=== PATIENT | female | born 1985 | race Caucasian/White ===

== ENCOUNTER 2016-12-11 21:47 | Emergency (ER) | payer MEDICARE, OTHER ==
[2016-12-11 22:20] LABS: BASOPHILS % 0.4 (0.0-1.5); EOSINOPHILS % 0.7 % (0.0-6.8); MEAN CORPUSCULAR HEMOGLOBIN 28.5 pg (28.0-34.0); MEAN CORPUSCULAR VOLUME 86.6 fl (80.0-100.0); MONOCYTES % 4.5 % (0.0-11.0); NEUTROPHILS # 6.1 # k/uL (1.4-7.7)
[2016-12-11 22:30] LABS: eGFR (African) > 60; eGFR (Non-African) > 60
[2016-12-11] MEDS ORDERED: INSULIN REGULAR, HUMAN 100 UNIT/ML 3ML VIAL SQ ONE (22:46)
--- NOTE | 2016-12-11 22:46 | ED Physician Documentation ---
General Adult - HISTORIAN Historian: patient, other (caregiver, custodial notes) - HPI Stated Complaint: high blood sugar Chief Complaint: General Adult Additional Information: FSG 420. Pt carries dx of DM, but no treatment. Has FSG drawn fasting on Wednesday mornings and at 1900 on . Says she ate five fun size candy bars this evening. - ROS CONST: other (DM, BPD) - PAST HX Past History: other (BPD) Allergies/Adverse Reactions: Allergies Allergy/AdvReac Type Severity Reaction Status Date / Time zolpidem tartrate Allergy Unknown Verified 12/11/16 22:12 [From Ambien] Home Medications: Ambulatory Orders Medication Instructions Recorded Acetaminophen [Tylenol] 325 mg PO Q4 PRN 11/25/13 Divalproex Sodium [Divalproex 500 mg PO BID 11/25/13 Sodium ER] Docusate Sodium [Colace] 250 mg PO BID 11/25/13 LORazepam [Ativan] 0.5 mg PO BID 11/25/13 Loratadine [Claritin] 10 mg PO DAILY 11/25/13 guaiFENesin [Robitussin] 100 mg PO Q4 11/25/13 Asenapine Maleate [Saphris] 10 mg SL BID 12/11/16 Benztropine Mesylate [Cogentin] 0.5 mg PO QID 12/11/16 Lorazepam [Ativan] 2 mg PO QID 12/11/16 - SOCIAL HX Smoking History: non-smoker - FAMILY HX Family History: Yes - VITAL SIGNS Vital Signs: Vital Signs Temp Pulse Resp BP Pulse Ox 98.2 F 111 H 16 145/95 97 12/11/16 21:50 12/11/16 21:50 12/11/16 21:50 12/11/16 21:50 12/11/16 21:50 - REVIEWED ASSESSMENTS Nursing Assessment Reviewed: Yes ED Results Lab/Radiology - Lab Results Lab Results: Lab Results 12/11/16 12/11/16 22:12 22:12 WBC 9.50 K/ul K/ul (4.00-12.00) RBC 4.37 M/ul M/ul (3.90-5.20) Hgb 12.5 g/dL g/dL (12.0-16.0) Hct 37.8 % % (34.5-46.5) MCV 86.6 fl fl (80.0-100.0) MCH 28.5 pg pg (28.0-34.0) MCHC 33.0 g/dL g/dL (30.0-36.0) RDW 12.9 % % (11.3-14.3) Plt Count 228 K/mm3 K/mm3 (130-400) Neut % (Auto) 64.0 % % (39.0-79.0) Lymph % (Auto) 29.1 % % (16.0-50.0) [place] % (Auto) 4.5 % % (0.0-11.0) Eos % (Auto) 0.7 % % (0.0-6.8) Baso % (Auto) 0.4 (0.0-1.5) Neut # (Auto) 6.1 # k/uL # k/uL (1.4-7.7) Lymph # (Auto) 2.8 # k/uL # k/uL (0.6-4.0) [place] # (Auto) 0.4 # k/uL # k/uL (0.0-0.9) Eos # (Auto) 0.1 # k/uL # k/uL (0.0-0.6) Baso # (Auto) 0.0 # k/uL # k/uL (0.0-0.5) Reactive Lymphs % 1.3 % % (0.0-5.0) Reactive Lymphs # 0.1 # k/uL # k/uL (0.0-0.8) Sodium 129 mmol/L L mmol/L (137-145) Potassium 4.1 mmol/L mmol/L (3.5-5.1) Chloride 96 mmol/L L mmol/L (98-107) Carbon Dioxide 24 mmol/L mmol/L (22-30) BUN 11 mg/dL mg/dL (7-17) Creatinine 0.70 mg/dL mg/dL (0.52-1.04) Estimated Creat Clear 218 Est GFR ( Amer) > 60 (60 - ) Est GFR (Non-Af Amer) > 60 (60 - ) Glucose 431 mg/dL H mg/dL (74-106) Calcium 9.1 mg/dL mg/dL (8.4-10.2) Total Bilirubin 0.1 mg/dL L mg/dL (0.2-1.3) AST 10 U/L L U/L (15-46) ALT 20 U/L U/L (13-69) Alkaline Phosphatase 71 U/L U/L (38-126) Total Protein 6.8 g/dL g/dL (6.3-8.2) Albumin 3.5 g/dL g/dL (3.5-5.0) - Orders Orders: ED Orders Category Date Time Status CBC/PLATELET/DIFF Routine Lab 12/11/16 22:12 Completed CMP Routine Lab 12/11/16 22:12 Completed GLYCOHEMOGLOBIN A1C with eAG Routine Lab 12/11/16 22:12 Received General Adult Physical Exam - PHYSICAL EXAM GENERAL APPEARANCE: no distress EENT: eye inspection normal, ENT inspection normal NECK: normal inspection, supple RESPIRATORY: no resp distress, breath sounds normal CVS: reg rate & rhythm, heart sounds normal, no murmur ABDOMEN: soft, normal bowel sounds SKIN: warm/dry, normal color EXTREMITIES: no evidence of injury NEURO: CN's nml as tested, motor nml, sensation nml Discharge Clincal Impression: Hyperglycemia Referrals: Primary Doctor,No [Primary Care Provider] - 2 Days Additional Instructions: General Adult - HISTORIAN Historian: patient, other (caregiver, custodial notes) - HPI Stated Complaint: high blood sugar Chief Complaint: General Adult Additional Information: FSG 420. Pt carries dx of DM, but no treatment. Has FSG drawn fasting on Wednesday mornings and at 1900 on . Says she ate five fun size candy bars this evening. - PAST HX Allergies/Adverse Reactions: Allergies Allergy/AdvReac Type Severity Reaction Status Date / Time zolpidem tartrate Allergy Unknown Verified 12/11/16 22:12 [From Jez] Home Medications: Ambulatory Orders Medication Instructions Recorded Acetaminophen [Tylenol] 325 mg PO Q4 PRN 11/25/13 Divalproex Sodium [Divalproex 500 mg PO BID 11/25/13 Sodium ER] Docusate Sodium [Colace] 250 mg PO BID 11/25/13 LORazepam [Ativan] 0.5 mg PO BID 11/25/13 Loratadine [Claritin] 10 mg PO DAILY 11/25/13 guaiFENesin [Robitussin] 100 mg PO Q4 10/11/14 Asenapine Maleate [Saphris] 10 mg SL BID 12/11/16 Benztropine Mesylate [Cogentin] 0.5 mg PO QID 12/11/16 Lorazepam [Ativan] 2 mg PO QID 12/11/16 - VITAL SIGNS Vital Signs: Vital Signs Temp Pulse Resp BP Pulse Ox 98.2 F 111 H 16 145/95 97 12/11/16 21:50 12/11/16 21:50 12/11/16 21:50 12/11/16 21:50 12/11/16 21:50 ED Results Lab/Radiology - Lab Results Lab Results: Lab Results 12/11/16 12/11/16 22:12 22:12 WBC 9.50 K/ul K/ul (4.00-12.00) RBC 4.37 M/ul M/ul (3.90-5.20) Hgb 12.5 g/dL g/dL (12.0-16.0) Hct 37.8 % % (34.5-46.5) MCV 86.6 fl fl (80.0-100.0) MCH 28.5 pg pg (28.0-34.0) MCHC 33.0 g/dL g/dL (30.0-36.0) RDW 12.9 % % (11.3-14.3) Plt Count 228 K/mm3 K/mm3 (130-400) Neut % (Auto) 64.0 % % (39.0-79.0) Lymph % (Auto) 29.1 % % (16.0-50.0) [place] % (Auto) 4.5 % % (0.0-11.0) Eos % (Auto) 0.7 % % (0.0-6.8) Baso % (Auto) 0.4 (0.0-1.5) Neut # (Auto) 6.1 # k/uL # k/uL (1.4-7.7) Lymph # (Auto) 2.8 # k/uL # k/uL (0.6-4.0) [place] # (Auto) 0.4 # k/uL # k/uL (0.0-0.9) Eos # (Auto) 0.1 # k/uL # k/uL (0.0-0.6) Baso # (Auto) 0.0 # k/uL # k/uL (0.0-0.5) Reactive Lymphs % 1.3 % % (0.0-5.0) Reactive Lymphs # 0.1 # k/uL # k/uL (0.0-0.8) Sodium 129 mmol/L L mmol/L (137-145) Potassium 4.1 mmol/L mmol/L (3.5-5.1) Chloride 96 mmol/L L mmol/L (98-107) Carbon Dioxide 24 mmol/L mmol/L (22-30) BUN 11 mg/dL mg/dL (7-17) Creatinine 0.70 mg/dL mg/dL (0.52-1.04) Estimated Creat Clear 218 Est GFR ( Amer) > 60 (60 - ) Est GFR (Non-Af Amer) > 60 (60 - ) Glucose 431 mg/dL H mg/dL (74-106) Calcium 9.1 mg/dL mg/dL (8.4-10.2) Total Bilirubin 0.1 mg/dL L mg/dL (0.2-1.3) AST 10 U/L L U/L (15-46) ALT 20 U/L U/L (13-69) Alkaline Phosphatase 71 U/L U/L (38-126) Total Protein 6.8 g/dL g/dL (6.3-8.2) Albumin 3.5 g/dL g/dL (3.5-5.0) - Orders Orders: ED Orders Category Date Time Status CBC/PLATELET/DIFF Routine Lab 12/11/16 22:12 Completed CMP Routine Lab 12/11/16 22:12 Completed GLYCOHEMOGLOBIN A1C with eAG Routine Lab 12/11/16 22:12 Received General Adult Physical Exam - PHYSICAL EXAM GENERAL APPEARANCE: no distress EENT: eye inspection normal, ENT inspection normal NECK: normal inspection, supple RESPIRATORY: no resp distress, breath sounds normal CVS: reg rate & rhythm, heart sounds normal, no murmur ABDOMEN: soft, normal bowel sounds SKIN: warm/dry, normal color EXTREMITIES: no evidence of injury NEURO: CN's nml as tested, motor nml, sensation nml Discharge Clincal Impression: Hyperglycemia Referrals: Primary Doctor,No [Primary Care Provider] - 2 Days Additional Instructions: Obtain the results of your Hgb A1C and make sure DrJake Obtain the results of your Hgb A1C and make sure Dr. Olivas gets them. Follow the sliding scale insulin protocol Condition: Fair Disposition: 01 HOME, SELF-CARE Decision to Admit: NO Decision Time: 23:30
[2016-12-11] MEDS ORDERED: INSULIN REGULAR, HUMAN 100 UNIT/ML 3ML VIAL ONE (22:49)
[2016-12-12 00:04] VITALS: BP 157/53
== END 2016-12-11 23:55 | disposition home or self-care (01) ==
LOC: ED 21:47
DX: R73.9 Hyperglycemia, unspecified (principal)
CPT/HCPCS: 80053; 83036; 85025; J1815; 96372; 99283

== ENCOUNTER 2017-06-10 13:40 | Emergency (ER) | payer MEDICARE, OTHER ==
--- NOTE | 2017-06-10 14:03 | ED Physician Documentation ---
Psychological Disorders - HISTORIAN Historian: patient, other (caregiver) - HPI Stated Complaint: hearing voices Chief Complaint: Psychological Disorder Additional Information: Says she has been hearing voices for a week and they are telling her to hurt herself. - ROS CONST: none - PAST HX Psychiatric problems: psychiatric problems Allergies/Adverse Reactions: Allergies Allergy/AdvReac Type Severity Reaction Status Date / Time zolpidem tartrate Allergy Unknown Verified 06/10/17 14:47 [From Ambien] Home Medications: Ambulatory Orders Medication Instructions Recorded Acetaminophen [Tylenol] 325 mg PO Q4 PRN 11/25/13 Divalproex Sodium [Divalproex 500 mg PO BID 11/25/13 Sodium ER] Docusate Sodium [Colace] 250 mg PO BID 11/25/13 LORazepam [Ativan] 0.5 mg PO BID 11/25/13 Loratadine [Claritin] 10 mg PO DAILY 11/25/13 Asenapine Maleate [Saphris] 10 mg SL BID 12/11/16 Benztropine Mesylate [Cogentin] 0.5 mg PO QID 12/11/16 Lorazepam [Ativan] 2 mg PO QID 12/11/16 Divalproex Sodium [Depakote] 1 tab PO BID 06/10/17 Glyburide/Metformin HCl 2 tab PO BID 06/10/17 [Glyburide-Metformin 5-500 mg] Pantoprazole Sodium [Protonix] 40 mg PO DAILY 06/10/17 risperiDONE [Risperdal] 1 tab PO TID 06/10/17 - Social HX Smoking History: non-smoker - Family HX Family HX: other - VITAL SIGNS Vital Signs: Vital Signs Temp Pulse Resp BP Pulse Ox 96.7 F L 86 17 132/76 95 06/10/17 13:45 06/10/17 13:45 06/10/17 13:45 06/10/17 13:45 06/10/17 13:45 - REVIEWED ASSESSMENTS Nursing Assessment Reviewed: Yes Vitals Reviewed: Yes Progress - Progress Progress: 1720, accepted for transfer to [facility] per Dr. Monet Song ED Results Lab/Radiology - Lab Results Lab Results: Lab Results 06/10/17 06/10/17 06/10/17 14:30 14:30 14:30 WBC 9.00 K/ul K/ul (4.00-12.00) RBC 4.46 M/ul M/ul (3.90-5.20) Hgb 12.5 g/dL g/dL (12.0-16.0) Hct 40.0 % % (34.5-46.5) MCV 89.6 fl fl (80.0-100.0) MCH 27.9 pg L pg (28.0-34.0) MCHC 31.2 g/dL g/dL (30.0-36.0) RDW 13.1 % % (11.3-14.3) Plt Count 287 K/mm3 K/mm3 (130-400) Neut % (Auto) 65.6 % % (39.0-79.0) Lymph % (Auto) 28.4 % % (16.0-50.0) [place] % (Auto) 3.5 % % (0.0-11.0) Eos % (Auto) 0.8 % % (0.0-6.8) Baso % (Auto) 0.4 (0.0-1.5) Neut # (Auto) 5.9 # k/uL # k/uL (1.4-7.7) Lymph # (Auto) 2.6 # k/uL # k/uL (0.6-4.0) [place] # (Auto) 0.3 # k/uL # k/uL (0.0-0.9) Eos # (Auto) 0.1 # k/uL # k/uL (0.0-0.6) Baso # (Auto) 0.0 # k/uL # k/uL (0.0-0.5) Reactive Lymphs % 1.3 % % (0.0-5.0) Reactive Lymphs # 0.1 # k/uL # k/uL (0.0-0.8) Sodium 142 mmol/L mmol/L (136-145) Potassium 4.4 mmol/L mmol/L (3.5-5.1) Chloride 100 mmol/L mmol/L (98-107) Carbon Dioxide 26 mmol/L mmol/L (22-30) BUN 12 mg/dL mg/dL (7-17) Creatinine 0.60 mg/dL mg/dL (0.52-1.04) Estimated Creat Clear 294 Est GFR ( Amer) > 60 (60 - ) Est GFR (Non-Af Amer) > 60 (60 - ) Glucose 119 mg/dL H mg/dL (74-106) Calcium 9.6 mg/dL mg/dL (8.4-10.2) Total Bilirubin 0.5 mg/dL mg/dL (0.2-1.3) AST 17 U/L U/L (15-46) ALT 28 U/L U/L (13-69) Alkaline Phosphatase 74 U/L U/L (38-126) Total Protein 7.0 g/dL g/dL (6.3-8.2) Albumin 4.0 g/dL g/dL (3.5-5.0) Urine Color Urine Appearance Urine pH Ur Specific [place] Urine Protein Urine Ketones Urine Occult Blood Urine Nitrite Urine Bilirubin Urine Urobilinogen Ur Leukocyte Esterase Urine Glucose Urine HCG, Qual Opiates Screen Oxycodone Screen Methadone Screen Acetaminophen < 10.0 ug/mL L ug/mL (10-30) Ur Barbiturates Screen Tricyclic Antidepress Phencyclidine Screen Amphetamines Screen U Methamphetamines Scrn MDMA Benzodiazepines Screen Urine Cocaine Screen U Cannabinoids Screen Ethyl Alcohol < 10.0 mg/dL mg/dL (0.0-10.0) 06/10/17 06/10/17 06/10/17 14:28 14:28 14:28 WBC RBC Hgb Hct MCV MCH MCHC RDW Plt Count Neut % (Auto) Lymph % (Auto) [place] % (Auto) Eos % (Auto) Baso % (Auto) Neut # (Auto) Lymph # (Auto) [place] # (Auto) Eos # (Auto) Baso # (Auto) Reactive Lymphs % Reactive Lymphs # Sodium Potassium Chloride Carbon Dioxide BUN Creatinine Estimated Creat Clear Est GFR ( Amer) Est GFR (Non-Af Amer) Glucose Calcium Total Bilirubin AST ALT Alkaline Phosphatase Total Protein Albumin Urine Color Yellow (YELLOW) Urine Appearance Clear (CLEAR) Urine pH 6.0 (5.0 - 8.0) Ur Specific [place] 1.010 (1.010-1.030) Urine Protein Negative mg/dL mg/dL (NEGATIVE) Urine Ketones Negative mg/dL mg/dL (NEGATIVE) Urine Occult Blood Negative (NEGATIVE) Urine Nitrite Negative (NEGATIVE) Urine Bilirubin Negative (NEGATIVE) Urine Urobilinogen 0.2 Eu Eu (0.2-1.0) Ur Leukocyte Esterase Negative (NEGATIVE) Urine Glucose Negative mg/dL mg/dL (NEGATIVE) Urine HCG, Qual Negative (NEGATIVE) Opiates Screen Negative ng/mL ng/mL (<300) Oxycodone Screen Negative ng/mL ng/mL (<100) Methadone Screen Negative ng/mL ng/mL (<200) Acetaminophen Ur Barbiturates Screen Negative ng.mL ng.mL (<200) Tricyclic Antidepress Negative ng/mL ng/mL (<300) Phencyclidine Screen Negative ng/mL ng/mL (< 25) Amphetamines Screen Negative ng/mL ng/mL (<500) U Methamphetamines Scrn Negative ng/mL ng/mL (<500) MDMA Negative ng/mL ng/mL (<500) Benzodiazepines Screen Non negative ng/mL H ng/mL (<150) Urine Cocaine Screen Negative ng/mL ng/mL (<150) U Cannabinoids Screen Negative ng/mL ng/mL (< 50) Ethyl Alcohol - Orders Orders: ED Orders Category Date Time Status Suicide Precautions 1T Care 06/10/17 13:58 Active ACETAMINOPHEN LEVEL Routine Lab 06/10/17 14:30 Completed ALCOHOL MEDICAL USE ONLY Stat Lab 06/10/17 14:30 Completed CBC/PLATELET/DIFF Routine Lab 06/10/17 14:30 Completed CMP Routine Lab 06/10/17 14:30 Completed DRUG SCREEN URINE MEDICAL ONLY Routine Lab 06/10/17 14:28 Completed SALICYLATE LEVEL Stat Lab 06/10/17 14:30 Received THYROID STIMULATING HORMONE Stat Lab 06/10/17 14:30 Received THYROXINE T4 FREE Stat Lab 06/10/17 14:30 Received UA MACRO DIP ONLY Routine Lab 06/10/17 14:28 Completed URINE HCG Stat Lab 06/10/17 14:28 Completed Butorphanol Tartrate [Stadol] Med 06/10/17 14:05 Discontinued 2 mg .ROUTE .STK-MED ONE Ondansetron HCl/Pf [Zofran 4 mg/2 ml] Med 06/10/17 14:05 Discontinued 4 mg .ROUTE .STK-MED ONE Psych Physical Exam - Physical Exam General Appearance: alert, mild distress (anxious) ENT: nml ENT inspection, pharynx nml Eyes: PERRL Suicide Attempts: admit Orientation: nml x3 Cranial Nerves: CN's intact as tested (reflexes 2+ throughout) Sensory, Motor: nml motor response, nml sensory response, nml reflexes, nml gait Neck/Back: normal inspection, other (no CVA or vertebral tenderness) Respiratory: breath sounds normal CVS: reg rate & rhythm Skin: warm/dry, normal color Extremities: normal range of motion (gait and stance), no evidence of injury Discharge Clincal Impression: Suicidal ideation Referrals: Edd Handley MD [Primary Care Provider] - 2 Days Condition: Fair Disposition: 02 XFER SHT-TRM HOSP Decision to Admit: NO Decision Time: 17:20
[2017-06-10] MEDS ORDERED: BUTORPHANOL TARTRATE 2 MG/ML VIAL ONE (14:05)
[2017-06-10] MEDS ORDERED: ONDANSETRON HCL/PF 4 MG/ 2ML VIAL ONE (14:05)
[2017-06-10 15:07] LABS: BASOPHILS % 0.4 (0.0-1.5); EOSINOPHILS % 0.8 % (0.0-6.8); MEAN CORPUSCULAR HEMOGLOBIN 27.9 pg (28.0-34.0); MEAN CORPUSCULAR VOLUME 89.6 fl (80.0-100.0); MONOCYTES % 3.5 % (0.0-11.0); NEUTROPHILS # 5.9 # k/uL (1.4-7.7)
[2017-06-10 15:20] LABS: eGFR (African) > 60; eGFR (Non-African) > 60
[2017-06-10 15:45] LABS: APPEARANCE,URINE CLEAR (CLEAR); COLOR,URINE YELLOW (YELLOW); OCCULT BLOOD,URINE NEGATIVE (NEGATIVE); UROBILINOGEN URINE 0.2 Eu (0.2-1.0)
[2017-06-10 15:51] LABS: CANNABINOIDS NEGATIVE ng/mL (< 50); METHYLENEDIOXYMETHAMPHETAMINE NEGATIVE ng/mL (<500)
[2017-06-10 18:48] VITALS: BP 154/105
== END 2017-06-10 18:32 | disposition short-term general hospital (02) ==
LOC: ED 13:40
DX: R45.851 Suicidal ideations (principal)
CPT/HCPCS: 80053; 81002; 81025; 84439; 84443; 85025; G0480; G0481; 80320; 80377; 99283; 99284

== ENCOUNTER 2017-11-13 18:09 | Emergency (ER) | payer MEDICARE, OTHER ==
[2017-11-13] MEDS ORDERED: 0.9 % SODIUM CHLORIDE 1,000 ML IV ONE ×2 (18:21→19:50)
[2017-11-13] MEDS ORDERED: ONDANSETRON HCL/PF 4 MG/ 2ML VIAL IVP ONE (18:22)
[2017-11-13] MEDS ORDERED: ONDANSETRON HCL 4 MG TAB.RAPDIS PO ONE (18:35)
--- NOTE | 2017-11-13 18:35 | ED Physician Documentation ---
General Adult - HISTORIAN Historian: patient, other (caregiver) - HPI Stated Complaint: vomiting Chief Complaint: General Adult Additional Information: Onset of vomiting at 1600 today. No belly pain except soreness from vomiting. Has not urinated since prior to 1600. She has not had a bowel movement since 11/09. Says she is not passing gas. No fever. No other modifying factors or associated signs. - ROS CONST: no problems - PAST HX Past History: other (bipolar, psychosis, NIDDM, GERD, seizures, ADHD, depression, hypothyroidism) Allergies/Adverse Reactions: Allergies Allergy/AdvReac Type Severity Reaction Status Date / Time zolpidem tartrate Allergy Unknown Verified 11/13/17 19:17 [From Ambien] Home Medications: Ambulatory Orders Medication Instructions Recorded Acetaminophen [Tylenol] 325 mg PO Q4 PRN 11/25/13 LORazepam [Ativan] 2 mg PO Q4 PRN 11/25/13 Asenapine Maleate [Saphris] 10 mg PO BID 11/13/17 Benztropine Mesylate [Cogentin] 0.5 mg PO QID 11/13/17 Divalproex Sodium [Depakote ER] 1,000 mg PO D 11/13/17 Divalproex Sodium [Depakote] 500 mg PO HS 11/13/17 Docusate Sodium [Colace] 200 mg PO BID 11/13/17 Glipizide [Glucotrol Xl] 10 mg PO D 11/13/17 Levothyroxine Sodium [Synthroid] 100 mg PO D 11/13/17 Medroxyprogesterone Acetate 150 mg IM DIRECTED 11/13/17 [Depo-Provera] Melatonin 1 mg PO HS 11/13/17 Metformin HCl [Metformin HCl ER] 1,000 mg PO BID 11/13/17 Prazosin HCl 2 mg PO HS 11/13/17 Trazodone HCl 25 mg PO HS 11/13/17 clonazePAM [Klonopin] 0.5 mg PO BID 11/13/17 - SOCIAL HX Smoking History: non-smoker - FAMILY HX Family History: No - VITAL SIGNS Vital Signs: Vital Signs Temp Pulse Resp BP Pulse Ox 154/105 06/10/17 18:32 - REVIEWED ASSESSMENTS Nursing Assessment Reviewed: Yes Vitals Reviewed: Yes Progress - Progress Progress: Report Submission Date: Nov 13, 2017 7:56:00 PM CDT Patient Study Name: SONNY DARLING Date: Nov 13, 2017 7:21:40 PM CDT Modality Type: DX Gender: F Description: CHEST,ABDOMEN : 83 Institution: [facility] Physician: IFRAH WERNER - PA chest and flat and upright abdomen History: Vomiting PA chest dated November 13, 2017 demonstrates a normal cardiomediastinal silhouette. Pulmonary vascularity is normal. There is no confluent infiltrate or pleural effusion. Flat and upright views of the abdomen demonstrate no free air. The bowel gas pattern is nonobstructive. No abnormal calcifications are noted. Impression: No acute cardiopulmonary process. Nonobstructive bowel gas pattern. Electronically signed on Nov 13, 2017 7:56:00 PM CDT by: Yaneli Robison ED Results Lab/Radiology - Orders Orders: ED Orders Category Date Time Status Place IV Lock 1T Care 11/13/17 18:22 Active CBC/PLATELET/DIFF Routine Lab 11/13/17 Ordered CMP Routine Lab 11/13/17 Ordered UA [URINALYSIS] Routine Lab 11/13/17 Ordered 0.9 % Sodium Chloride [Normal Saline] 1,000 ml Med 11/13/17 18:21 Active IV Q1H Ondansetron HCl/Pf [Zofran 4 mg/2 ml] Med 11/13/17 18:22 Discontinued 4 mg IVP NOW ONE General Adult Physical Exam - PHYSICAL EXAM GENERAL APPEARANCE: moderate distress EENT: eye inspection normal, ENT inspection normal, pharynx normal, dry mucous membranes NECK: normal inspection, supple RESPIRATORY: breath sounds normal CVS: reg rate & rhythm, heart sounds normal ABDOMEN: soft, normal bowel sounds SKIN: warm/dry, normal color EXTREMITIES: no evidence of injury NEURO: CN's nml as tested, motor nml, sensation nml Discharge Clincal Impression: Nausea and vomiting Qualifiers: Vomiting type: unspecified Vomiting Intractability: non-intractable Qualified Code(s): R11.2 - Nausea with vomiting, unspecified Constipation Qualifiers: Constipation type: unspecified constipation type Qualified Code(s): K59.00 - Constipation, unspecified Referrals: Edd Lucero [Primary Care Provider] - 2 Days Condition: Fair Disposition: 01 HOME, SELF-CARE Decision to Admit: NO Decision Time: 20:05
[2017-11-13 19:03] LABS: eGFR (Non-African) > 60
[2017-11-13] MEDS ORDERED: PROMETHAZINE HCL 25 MG/ML VIAL IM ONE (19:59)
--- NOTE | 2017-11-13 20:01 | Diagnostic Imaging Report ---
IFRAH WERENR [facility] [address] [facility] [address] [address] Report Submission Date: Nov 13, 2017 7:56:00 PM CDT Patient Study Name: SONNY DARLING Date: Nov 13, 2017 7:21:40 PM CDT Modality Type: DX Gender: F Description: CHEST,ABDOMEN : 83 Institution: [facility] Physician: IFRAH WERNER PA chest and flat and upright abdomen History: Vomiting PA chest dated November 13, 2017 demonstrates a normal cardiomediastinal silhouette. Pulmonary vascularity is normal. There is no confluent infiltrate or pleural effusion. Flat and upright views of the abdomen demonstrate no free air. The bowel gas pattern is nonobstructive. No abnormal calcifications are noted. Impression: No acute cardiopulmonary process. Nonobstructive bowel gas pattern. Electronically signed on Nov 13, 2017 7:56:00 PM CDT by: Yaneli CUNNINGHAM
[2017-11-13 20:21] LABS: BASO % 0.4 % (0.0-1.5); EOS % 0.5 % (0.0-6.8); MCH. 27.2 pg (28.0-34.0); MCV 83.5 fL (80.0-100.0); MONOCYTE % 5.3 % (0.0-11.0); MONOCYTE ABS # 0.66 thou/uL (0.00-0.90); PLATELET COUNT 327 thou/uL (130-400)
[2017-11-13 21:15] VITALS: BP 126/61
== END 2017-11-13 21:00 | disposition home or self-care (01) ==
LOC: ED 18:09
DX: R11.2 Nausea with vomiting, unspecified (principal); K59.00 Constipation, unspecified
CPT/HCPCS: 74022; 80053; 83690; 84703; 85025; A9270; J2405; J2550; J7030; 96365; 96366; 96372; 96375; 99284; S1016

== ENCOUNTER 2017-11-19 21:32 | Emergency (ER) | payer MEDICARE, OTHER ==
[2017-11-19 21:56] VITALS: BP 153/79
--- NOTE | 2017-11-19 21:58 | ED Physician Documentation ---
Psychological Disorders - HISTORIAN Historian: patient - HPI Stated Complaint: SI Chief Complaint: Psychological Disorder Additional Information: Hearing voices that tell her to harm herself for 6 days. Hasn't slept for 2 days. Knows there is bleach by the couch at home and she will drink it when the staff is not around. Resident of [facility]. Past SI and last hospitalization about a year ago. Says she has been taking her meds. No other modifying factors or associated signs. - ROS CONST: none - PAST HX Psychiatric problems: bipolar disorder, depression, other (psychosis, MR, ADHD) Lung, Cardiac, DM: other (NIDDM, hypothyroid) Allergies/Adverse Reactions: Allergies Allergy/AdvReac Type Severity Reaction Status Date / Time zolpidem tartrate Allergy Unknown Verified 11/19/17 22:02 [From Ambien] Home Medications: Ambulatory Orders Medication Instructions Recorded Acetaminophen [Tylenol] 325 mg PO Q4 PRN 11/25/13 LORazepam [Ativan] 2 mg PO Q4 PRN 11/25/13 Asenapine Maleate [Saphris] 10 mg PO BID 11/13/17 Benztropine Mesylate [Cogentin] 0.5 mg PO QID 11/13/17 Divalproex Sodium [Depakote ER] 1,000 mg PO D 11/13/17 Divalproex Sodium [Depakote] 500 mg PO HS 11/13/17 Docusate Sodium [Colace] 200 mg PO BID 11/13/17 Glipizide [Glucotrol Xl] 10 mg PO D 11/13/17 Levothyroxine Sodium [Synthroid] 100 mg PO D 11/13/17 Medroxyprogesterone Acetate 150 mg IM DIRECTED 11/13/17 [Depo-Provera] Melatonin 1 mg PO HS 11/13/17 Metformin HCl [Metformin HCl ER] 1,000 mg PO BID 11/13/17 Prazosin HCl 2 mg PO HS 11/13/17 clonazePAM [Klonopin] 0.5 mg PO BID 11/13/17 Trazodone HCl 1 tab PO HS 11/19/17 - Social HX Smoking History: non-smoker Marital Status: single Drug Use: none - Family HX Family HX: other (unknown) - VITAL SIGNS Vital Signs: Vital Signs Temp Pulse Resp BP Pulse Ox 110 H 16 153/79 97 11/19/17 21:40 11/19/17 21:40 11/19/17 21:40 11/19/17 21:40 - REVIEWED ASSESSMENTS Nursing Assessment Reviewed: Yes Vitals Reviewed: Yes Progress - Progress Progress: 0110, accepted for trans poonam to [facility] per Dr. Galloway. ED Results Lab/Radiology - Lab Results Lab Results: Lab Results 11/19/17 11/19/17 11/19/17 22:06 22:06 22:05 WBC Comment 10.99 thou/uL thou/uL (4.00-12.00) RBC 4.31 mil/uL mil/uL (3.90-5.20) Hemoglobin (Send Out) 11.9 g/dL g/dL (11.5-16.0) Hct (Send Out) 35.3 % % (34.5-46.5) MCV (Send Out) 81.9 fL fL (80.0-100.0) MCH 27.6 pg L pg (28.0-34.0) MCHC (Send Out) 33.7 g/dL g/dL (30.0-36.0) RDW Coeff of Paul 14.5 % % (11.3-14.7) Plt Count 331 thou/uL thou/uL (130-400) Absolute Lymphs (auto) 2.24 thou/uL thou/uL (0.60-4.00) Absolute Monos (auto) 0.47 thou/uL thou/uL (0.00-0.90) Absolute Basos (auto) 0.03 thou/uL thou/uL (0.00-0.50) Neutrophils % 74.5 % % (39.0-79.0) Absolute Neutrophils 8.19 thou/uL H thou/uL (1.50-7.70) Lymphocytes 20.4 % % (16.0-50.0) Monocytes 4.3 % % (0.0-11.0) Absolute Eosinophils 0.05 thou/uL thou/uL (0.00-0.60) Basophilia % 0.3 % % (0.0-1.5) Eosinophil Count 0.5 % % (0.0-6.8) Sodium 137 mmol/L mmol/L (136-145) Potassium 4.2 mmol/L mmol/L (3.5-5.1) Chloride 99 mmol/L mmol/L (98-107) Carbon Dioxide 24 mmol/L mmol/L (22-30) BUN 6 mg/dL L mg/dL (7-17) Creatinine 0.60 mg/dL mg/dL (0.52-1.04) Estimated Creat Clear 294 Est GFR ( Amer) > 60 (60 - ) Est GFR (Non-Af Amer) > 60 (60 - ) Glucose 163 mg/dL H mg/dL (74-106) Calcium 9.1 mg/dL mg/dL (8.4-10.2) Total Bilirubin < 0.1 mg/dL L mg/dL (0.2-1.3) AST 13 U/L L U/L (15-46) ALT 24 U/L U/L (13-69) Alkaline Phosphatase 73 U/L U/L (38-126) Total Protein 7.3 g/dL g/dL (6.3-8.2) Albumin 3.9 g/dL g/dL (3.5-5.0) TSH 2.960 uIU/mL uIU/mL (0.270-4.200) Acetaminophen 4.0 ug/mL L ug/mL (10-30) Ethyl Alcohol 11/19/17 22:04 WBC Comment RBC Hemoglobin (Send Out) Hct (Send Out) MCV (Send Out) MCH MCHC (Send Out) RDW Coeff of Paul Plt Count Absolute Lymphs (auto) Absolute Monos (auto) Absolute Basos (auto) Neutrophils % Absolute Neutrophils Lymphocytes Monocytes Absolute Eosinophils Basophilia % Eosinophil Count Sodium Potassium Chloride Carbon Dioxide BUN Creatinine Estimated Creat Clear Est GFR ( Amer) Est GFR (Non-Af Amer) Glucose Calcium Total Bilirubin AST ALT Alkaline Phosphatase Total Protein Albumin TSH Acetaminophen Ethyl Alcohol 4.6 mg/dL mg/dL (0.0-10.0) - Orders Orders: ED Orders Category Date Time Status ACETAMINOPHEN LEVEL Stat Lab 11/19/17 22:06 Completed ALCOHOL MEDICAL USE ONLY Stat Lab 11/19/17 22:04 Completed CBC REF Stat Lab 11/19/17 22:06 Completed CBC/PLATELET/DIFF Stat Lab 11/19/17 22:06 Received CMP Stat Lab 11/19/17 22:06 Completed DRUG SCREEN 8,URINE Stat Lab 11/19/17 22:05 Received SALICYLATE LEVEL Stat Lab 11/19/17 22:05 Received THYROID STIMULATING HORMONE Stat Lab 11/19/17 22:05 Completed URINALYSIS Routine Lab 11/19/17 Ordered EKG WITH COMPARISON Stat Ther 11/19/17 Ordered Psych Physical Exam - Physical Exam General Appearance: alert (appears tired), mild distress, other (obese) ENT: nml ENT inspection, pharynx nml (many absent teeth) Eyes: No: nystagmus Mental Status: suicidal ideation, depressed affect / mood Suicide Attempts: still contemplating Orientation: nml x3 Cranial Nerves: CN's intact as tested Sensory, Motor: nml motor response, nml sensory response, nml gait Respiratory: breath sounds normal CVS: reg rate & rhythm, heart sounds normal, no murmur Abdomen: non-tender, nml bowel sounds Skin: warm/dry, normal color Extremities: non-tender, no evidence of injury, no edema Discharge Clincal Impression: Suicidal ideation Referrals: Edd Lucero [Primary Care Provider] - 2 Days Condition: Fair Disposition: 02 XFER SHT-TRM HOSP Decision to Admit: NO Decision Time: 01:10
[2017-11-19 22:31] LABS: eGFR (Non-African) > 60
[2017-11-19 23:21] LABS: BASO % 0.3 % (0.0-1.5); EOS % 0.5 % (0.0-6.8); LYMPH ABS # 2.24 thou/uL (0.60-4.00); MCH. 27.6 pg (28.0-34.0); MCV 81.9 fL (80.0-100.0); MONOCYTE % 4.3 % (0.0-11.0); MONOCYTE ABS # 0.47 thou/uL (0.00-0.90); PLATELET COUNT 331 thou/uL (130-400)
[2017-11-21 08:53] LABS: APPEARANCE,URINE CLEAR (CLEAR); COLOR,URINE YELLOW (YELLOW); OCCULT BLOOD,URINE NEGATIVE (NEGATIVE); UROBILINOGEN URINE 0.2 Eu (0.2-1.0)
[2017-11-21 09:48] LABS: CANNABINOIDS NEGATIVE ng/mL (< 50); METHYLENEDIOXYMETHAMPHETAMINE NEGATIVE ng/mL (<500)
== END 2017-11-20 02:00 | disposition short-term general hospital (02) ==
LOC: ED 21:32
DX: R45.851 Suicidal ideations (principal)
CPT/HCPCS: 80053; 81002; 84443; 85025; G0480; G0481; 80307; 80320; 80377; 99284

== ENCOUNTER 2018-03-01 13:09 | Emergency (ER) | payer MEDICARE, OTHER ==
--- NOTE | 2018-03-01 14:46 | ED Physician Documentation ---
Upper Extremity Injury - HISTORIAN Historian: patient, other (caregiver) - HPI Stated Complaint: L wrist pain Chief Complaint: Upper Extremity Injury Additional Information: pt ias pt at [facility] facility where she att lift on another pt which had fallen w/ sudden popping and pain lt hand wrist. pain has persisted Onset: today (0800hrs) Severity: moderate Duration: worse, persistent since Associated Symptoms: numbness distally Modifying Factors: pain on movement - ROS CONST: no problems CVS/RESP: denies: chest pain, shortness of breath NEURO: none - PAST HX Past History: Rt handed, diabetes Type 2, other (hypothryoid--dx 6-8 mo ago std on levothryoxine-[place] no apparent rechecks - also multi psyche conditions) Allergies/Adverse Reactions: Allergies Allergy/AdvReac Type Severity Reaction Status Date / Time zolpidem tartrate Allergy Unknown Verified 03/01/18 13:47 [[address] [facility]] Home Medications: Ambulatory Orders Medication Instructions Recorded Benztropine Mesylate [Cogentin] 0.5 mg PO QID 11/13/17 Divalproex Sodium [Depakote ER] 1,000 mg PO D 11/13/17 Divalproex Sodium [Depakote] 500 mg PO HS 11/13/17 Docusate Sodium [Colace] 200 mg PO BID 11/13/17 Glipizide [Glucotrol Xl] 10 mg PO D 11/13/17 Levothyroxine Sodium [Synthroid] 100 mg PO D 11/13/17 Melatonin 1 mg PO HS 11/13/17 Metformin HCl [Metformin HCl ER] 1,000 mg PO BID 11/13/17 clonazePAM [Klonopin] 0.5 mg PO BID 11/13/17 Trazodone HCl 1 tab PO HS 11/19/17 Doxepin HCl [Sinequan] 25 mg PO HS 03/01/18 Pantoprazole Sodium 40 mg PO DAILY 03/01/18 - SOCIAL HX Smoking History: non-smoker Alcohol Use: none Drug Use: none - FAMILY HX Family History: no significant history - VITAL SIGNS Vital Signs: Vital Signs Temp Pulse Resp BP Pulse Ox 98.4 F 106 H 18 132/90 98 03/01/18 13:13 03/01/18 15:21 03/01/18 15:21 03/01/18 15:21 03/01/18 15:21 - REVIEWED ASSESSMENTS Nursing Assessment Reviewed: Yes Vitals Reviewed: Yes ED Results Lab/Radiology - Lab Results Lab Results: Lab Results 03/01/18 03/01/18 Unknown Unknown WBC 9.30 K/ul K/ul (4.00-12.00) RBC 4.74 M/ul M/ul (3.90-5.20) Hgb 12.4 g/dL g/dL (12.0-16.0) Hct 38.4 % % (34.5-46.5) MCV 81.0 fl fl (80.0-100.0) MCH 26.3 pg L pg (28.0-34.0) MCHC 32.5 g/dL g/dL (30.0-36.0) RDW 14.9 % H % (11.3-14.3) Plt Count 305 K/mm3 K/mm3 (130-400) Neut % (Auto) 60.6 % % (39.0-79.0) Lymph % (Auto) 32.9 % % (16.0-50.0) [place]gard % (Auto) 4.1 % % (0.0-11.0) Eos % (Auto) 1.9 % % (0.0-6.8) Baso % (Auto) 0.5 (0.0-1.5) Neut # (Auto) 5.6 # k/uL # k/uL (1.4-7.7) Lymph # (Auto) 3.1 # k/uL # k/uL (0.6-4.0) Bea[place]gard # (Auto) 0.4 # k/uL # k/uL (0.0-0.9) Eos # (Auto) 0.2 # k/uL # k/uL (0.0-0.6) Baso # (Auto) 0.1 # k/uL # k/uL (0.0-0.5) TSH 2.200 uIU/mL uIU/mL (0.270-4.200) - Orders Orders: ED Orders Category Date Time Status WRIST 3 VIEWS OR MORE [RAD] Stat Exams 03/01/18 Completed CBC/PLATELET/DIFF Routine Lab 03/01/18 Completed TSH [THYROID STIMULATING HORMONE] Stat Lab 03/01/18 Completed EKG WITH COMPARISON Stat Ther 03/01/18 Completed Upper Extremity Injury Physic - Physical Exam General Appearance: mild distress Hand: normal inspection, bone tenderness, limited ROM, soft tissue tenderness. No: non-tender, no evidence of injury, normal ROM, asymmetry Wrist: soft tissue tenderness, swelling (mild). No: normal inspection, non- tender, normal ROM Elbow/Forearm: normal inspection Shoulder: normal inspection Neuro/Vascular/Tendon: no vascular compromise. No: motor nml, sensation nml, abnml color, abnml cap refill Skin: warm,dry. No: diaphoretic, cool, cyanotic Head/ENT: nml inspection Neck/Back: nml inspection Resp/CVS: chest non-tender, breath sounds nml. No: heart sounds nml (tachy 127 on adm persisted while in ed--s/p exercise in ED =132 regular-ekg following = 113. on several routine exams in ed never below 100-usually around 120) Discharge Clincal Impression: ligt sprain lt hand/wrist Referrals: Edd Lucero [Primary Care Provider] - 2 Days Condition: Good Disposition: 01 HOME, SELF-CARE Decision to Admit: NO Decision Time: 11:15
[2018-03-01 15:12] LABS: BASOPHILS % 0.5 (0.0-1.5); EOSINOPHILS % 1.9 % (0.0-6.8); MEAN CORPUSCULAR HEMOGLOBIN 26.3 pg (28.0-34.0); MONOCYTES % 4.1 % (0.0-11.0); NEUTROPHILS # 5.6 # k/uL (1.4-7.7)
[2018-03-01 15:24] VITALS: BP 132/90
--- NOTE | 2018-03-01 17:10 | Diagnostic Imaging Report ---
JUDY ALBARRAN [facility] [address] [address] Report Submission Date: Mar 01, 2018 2:25:31 PM [employer] Patient Study Name: SONNY DARLING Date: Mar 01, 2018 1:53:30 PM [employer] Modality Type: DX Gender: F Description: UPPER EXTREMITY : 83 Institution: [facility] Physician: JUDY ALBARRAN Examination: Plain film left wrist History: MEDIAL LEFT WRIST PAIN AFTER CATCHING FRIEND FALL TODAY Comparison exams: None available Findings: 3 views of the left wrist demonstrate normal cortical margins. No fracture. No dislocation. No soft tissue abnormality. Impression: No acute osseous abnormality Electronically signed on Mar 01, 2018 2:25:31 PM [employer] by: John CUNNINGHAM
== END 2018-03-01 15:24 | disposition home or self-care (01) ==
LOC: ED 13:09
DX: S63.502A Unspecified sprain of left wrist, initial encounter (principal); E03.9 Hypothyroidism, unspecified; X58.XXXA Exposure to other specified factors, initial encounter; Y93.F2 Activity, caregiving, lifting; Y92.129 Unspecified place in nursing home as the place of occurrence of the external cause
CPT/HCPCS: 36415; 73110; 84443; 85025; 99283; 99285

== ENCOUNTER 2018-03-30 18:18 | Emergency (ER) | payer MEDICARE, OTHER ==
--- NOTE | 2018-03-30 18:45 | ED Physician Documentation ---
Psychological Disorders - HPI Stated Complaint: suicidal ideation Chief Complaint: Psychological Disorder Additional Information: Patient presents to ED with symptoms of hearing voices telling her to cut her throat. [facility] [place] and has a history of bipolar disorder, seizure disorder, DM2, and GERD. Onset: hours (24) Duration: gradual onset Intent: suicide, prior thoughts of suicide Severity: moderate Situational Problems: No - Associated Symptoms Symptoms: hallucinating (auditory) Suicidal: suicidal thoughts - ROS CONST: denies: fever NEURO/PSYCH: denies: headache EYES/ENT: denies: problems with vision CVS/RESP: denies: chest pain GI/: denies: nausea, vomiting MS/SKIN/LYMPH: denies: rash - PAST HX Psychiatric problems: bipolar disorder, depression, psychiatric problems DVT/PE Risk Factors: none Lung, Cardiac, DM: diabetes Type 2 Surgical History: no surgical history Allergies/Adverse Reactions: Allergies Allergy/AdvReac Type Severity Reaction Status Date / Time zolpidem tartrate Allergy Unknown Verified 03/01/18 13:47 [From Ambien] amoxicillin Allergy Verified 03/30/18 18:41 Home Medications: Ambulatory Orders Medication Instructions Recorded Benztropine Mesylate [Cogentin] 0.5 mg PO QID 11/13/17 Divalproex Sodium [Depakote ER] 1,000 mg PO D 11/13/17 Divalproex Sodium [Depakote] 500 mg PO HS 11/13/17 Docusate Sodium [Colace] 200 mg PO BID 11/13/17 Glipizide [Glucotrol Xl] 10 mg PO D 11/13/17 Levothyroxine Sodium [Synthroid] 100 mg PO D 11/13/17 Melatonin 1 mg PO HS 11/13/17 Metformin HCl [Metformin HCl ER] 1,000 mg PO BID 11/13/17 clonazePAM [Klonopin] 0.5 mg PO BID 11/13/17 Trazodone HCl 1 tab PO HS 11/19/17 Pantoprazole Sodium 40 mg PO DAILY 03/01/18 Bupropion HCl [Wellbutrin Xl] 1 tab PO DAILY 03/30/18 Divalproex Sodium [Depakote] 1 cap PO HS 03/30/18 Doxepin HCl [Sinequan] 1 tab PO HS 03/30/18 Loratadine [Claritin] 1 tab PO DAILY 03/30/18 Paliperidone Palmitate [Invega 1 ml IM MONTH 03/30/18 Sustenna] Prazosin HCl [Minipress] 1 tab PO HS 03/30/18 - Social HX Smoking History: non-smoker Marital Status: single Drug Use: none - Family HX Family HX: denies: mental illness - VITAL SIGNS Vital Signs: Vital Signs Temp Pulse Resp BP Pulse Ox 98.3 F 108 H 16 152/91 100 03/30/18 18:18 03/30/18 18:18 03/30/18 18:18 03/30/18 18:18 03/30/18 18:18 - REVIEWED ASSESSMENTS Nursing Assessment Reviewed: Yes Vitals Reviewed: Yes Progress - Results/Orders Results/Orders: UA - neg, HCG neg - Progress Progress: 1944 Labs within normal limits, toxicology neg, EKG normal. Patient is medically stable for inpatient psych evaluation and treatment. 2129 No inpatient psych available at this time. Will keep trying to place. [address] Colindres with [facility], she agrees to accept patient. We will arrange transport. - EKG/XRAY/CT EKG: NSR Comments: 98 bpm, QT 347, QTc 402 ED Results Lab/Radiology - Lab Results Lab Results: Lab Results 03/30/18 03/30/18 03/30/18 18:50 18:50 18:50 WBC 10.00 K/ul K/ul (4.00-12.00) RBC 4.23 M/ul M/ul (3.90-5.20) Hgb 11.3 g/dL L g/dL (12.0-16.0) Hct 34.1 % L % (34.5-46.5) MCV 81.0 fl fl (80.0-100.0) MCH 26.8 pg L pg (28.0-34.0) MCHC 3.2 g/dL L g/dL (30.0-36.0) RDW 14.9 % H % (11.3-14.3) Plt Count 305 K/mm3 K/mm3 (130-400) Neut % (Auto) 61.0 % % (39.0-79.0) Lymph % (Auto) 32.8 % % (16.0-50.0) Shelby % (Auto) 4.0 % % (0.0-11.0) Eos % (Auto) 1.6 % % (0.0-6.8) Baso % (Auto) 0.6 (0.0-1.5) Neut # (Auto) 6.1 # k/uL # k/uL (1.4-7.7) Lymph # (Auto) 3.3 # k/uL # k/uL (0.6-4.0) [place] # (Auto) 0.4 # k/uL # k/uL (0.0-0.9) Eos # (Auto) 0.2 # k/uL # k/uL (0.0-0.6) Baso # (Auto) 0.1 # k/uL # k/uL (0.0-0.5) Sodium 139 mmol/L mmol/L (136-145) Potassium 4.1 mmol/L mmol/L (3.5-5.1) Chloride 101 mmol/L mmol/L (98-107) Carbon Dioxide 25 mmol/L mmol/L (22-30) BUN 6 mg/dL L mg/dL (7-17) Creatinine 0.57 mg/dL mg/dL (0.52-1.04) Estimated Creat Clear 272 Est GFR ( Amer) > 60 (60 - ) Est GFR (Non-Af Amer) > 60 (60 - ) Glucose 159 mg/dL H mg/dL (74-106) Calcium 9.0 mg/dL mg/dL (8.4-10.2) Total Bilirubin 0.1 mg/dL L mg/dL (0.2-1.3) AST 25 U/L U/L (15-46) ALT 17 U/L U/L (13-69) Alkaline Phosphatase 67 U/L U/L (38-126) Total Protein 6.8 g/dL g/dL (6.3-8.2) Albumin 4.1 g/dL g/dL (3.5-5.0) Acetaminophen < 10.0 ug/mL L ug/mL (10-30) Ethyl Alcohol < 10.0 mg/dL mg/dL (0.0-10.0) - Orders Orders: ED Orders Category Date Time Status ACETAMINOPHEN LEVEL Stat Lab 03/30/18 18:50 Completed ALCOHOL MEDICAL USE ONLY Stat Lab 03/30/18 18:50 Completed CBC/PLATELET/DIFF Routine Lab 03/30/18 18:50 Completed CMP Routine Lab 03/30/18 18:50 Completed DRUG SCREEN URINE MEDICAL ONLY Routine Lab 03/30/18 Ordered HCG [URINE HCG] Stat Lab 03/30/18 18:53 Ordered SALICYLATE LEVEL Stat Lab 03/30/18 18:50 Received THYROID STIMULATING HORMONE Stat Lab 03/30/18 18:50 Received UA W/MICRO IF INDICATED Routine Lab 03/30/18 18:32 Ordered Mag Hydrox/Aluminum Hyd/Simeth [Mylanta] Med 03/30/18 19:39 Discontinued 30 ml PO NOW ONE Pantoprazole Sodium [Protonix] Med 03/30/18 19:39 Discontinued 40 mg PO NOW ONE EKG WITH COMPARISON Stat Ther 03/30/18 Ordered Psych Physical Exam - Physical Exam General Appearance: no acute distress, alert ENT: pharynx nml Eyes: PERRL Mental Status: tearful Suicide Attempts: denies Orientation: nml x3 Cranial Nerves: CN's intact as tested Sensory, Motor: nml motor response Neck/Back: normal inspection Respiratory: no resp distress, chest non-tender, breath sounds normal CVS: reg rate & rhythm Abdomen: non-tender, nml bowel sounds, no distention Skin: warm/dry Extremities: non-tender, no edema Discharge Clincal Impression: Suicide ideation, Auditory hallucinations Referrals: Edd Lucero [Primary Care Provider] - 2 Days Condition: Stable Disposition: 65 XFER TO PSYCH HOSP/UNIT Decision to Admit: [id number] Date of Decison to Admit: 03/30/18 Decision Time: 20:05
[2018-03-30 19:13] LABS: BASOPHILS % 0.6 (0.0-1.5); EOSINOPHILS % 1.6 % (0.0-6.8); MEAN CORPUSCULAR HEMOGLOBIN 26.8 pg (28.0-34.0); NEUTROPHILS # 6.1 # k/uL (1.4-7.7)
[2018-03-30 19:17] LABS: eGFR (Non-African) > 60
[2018-03-30] MEDS ORDERED: PANTOPRAZOLE SODIUM 40 MG TABLET.DR PO ONE (19:39)
[2018-03-30] MEDS ORDERED: MAG HYDROX/ALUMINUM HYD/SIMETH 30 ML UDC PO ONE (19:39)
[2018-03-31 03:27] VITALS: BP 143/85
[2018-03-31 07:37] LABS: APPEARANCE,URINE CLEAR (CLEAR); COLOR,URINE YELLOW (YELLOW); OCCULT BLOOD,URINE 2+ (NEGATIVE)
[2018-03-31 07:38] LABS: UROBILINOGEN URINE 0.2 Eu (0.2-1.0)
[2018-03-31 07:45] LABS: CANNABINOIDS NEGATIVE ng/mL (< 50); METHYLENEDIOXYMETHAMPHETAMINE NEGATIVE ng/mL (<500)
== END 2018-03-31 03:25 ==
LOC: ED 18:18
DX: R44.0 Auditory hallucinations (principal); R45.851 Suicidal ideations; Z79.899 Other long term (current) drug therapy
CPT/HCPCS: 36415; 80053; 81002; 81025; 84443; 85025; 93005; 99285; G0480; G0481; 80320; 80377

== ENCOUNTER 2018-05-09 10:43 | Observation (INO) | payer MEDICARE, OTHER ==
--- NOTE | 2018-05-09 11:18 | ED Physician Documentation ---
Suicidal Attempt - HISTORIAN Historian: patient, other (Caregiver from [facility]) - HPI Chief Complaint: Psychological Disorder (Hearing Voices/ SI) Additional Information: Patient is a 33-year-old female who presents to the ER with caregiver from the "[facility]". Patient states that she is hearing voices telling her to kill herself. Patient states that the voices are telling her to "cut herself". She states that she wants to cut her throat. Patient has an extensive history of psychiatric behaviors. She has a psych eval in February, hospitalized as inpatient at psychiatric facility in March, and psychiatrist has been increasing her Depakote this month and added Trazodone for sleep. She has received Invega IM on 04/21/18 and has been started on Invega 6 mg po daily. Caregiver states that patient has not really slept in 4 days- she is constantly getting up and not resting- she has been grabbing things at home and trying to harm herself. Onset: days ago (Has been going on all month) Duration: constant Intent: suicide ("wants to cut her throat") Severity: moderate Situational Problems: Yes (Does not like where she lives) Further Comments: no - Associated Symptoms Symptoms: hallucinating Suicidal: specific plan Mechanism: other (caregiver states that she grabs items and harms herself- hx of cutting) - ROS CONST: none NEURO/PSYCH: anxiety, depression EYES/ENT: none CVS/RESP: none GI/: denies: nausea, vomiting MS/SKIN/LYMPH: denies: rash - PAST HX Psychiatric problems: bipolar disorder, depression, prior suicide attempt, psychiatric problems, schizophrenia DVT/PE Risk Factors: none Surgical History: other (Dental) Immunizations: UTD Allergies/Adverse Reactions: Allergies Allergy/AdvReac Type Severity Reaction Status Date / Time zolpidem tartrate Allergy Unknown Verified 05/09/18 11:53 [From Ambien] amoxicillin Allergy Verified 05/09/18 11:53 Home Medications: Ambulatory Orders Medication Instructions Recorded Benztropine Mesylate [Cogentin] 0.5 mg PO BID 11/13/17 Docusate Sodium [Colace] 200 mg PO BID 11/13/17 Glipizide [Glucotrol Xl] 10 mg PO D 11/13/17 Levothyroxine Sodium [Synthroid] 100 mcg PO D 11/13/17 Melatonin 1 mg PO HS 11/13/17 Metformin HCl [Metformin HCl ER] 1,000 mg PO BID 11/13/17 clonazePAM [Klonopin] 0.5 mg PO BID 11/13/17 Trazodone HCl 100 mg PO HS 11/19/17 Pantoprazole Sodium 40 mg PO DAILY 03/01/18 Bupropion HCl [Wellbutrin Xl] 300 mg PO DAILY 03/30/18 Divalproex Sodium [Depakote] 1,500 mg PO HS 03/30/18 Doxepin HCl [Sinequan] 25 mg PO HS 03/30/18 Loratadine [Claritin] 10 mg PO DAILY 03/30/18 Paliperidone Palmitate [Invega 1 ml IM MONTH 03/30/18 Sustenna] Prazosin HCl [Minipress] 2 mg PO HS 03/30/18 Lorazepam [Ativan] 2 mg PO Q4H PRN 05/09/18 Medroxyprogesterone Acetate 150 mg IM Q3M 05/09/18 [Depo-Provera] Multivitamin [Tab-A-Cass] 1 tab PO DAILY 05/09/18 Paliperidone [Invega] 6 mg PO DAILY 05/09/18 - Social HX Smoking History: less than 1 pack/day Marital Status: single Drug Use: none - Family HX Family HX: mental illness - VITAL SIGNS Vital Signs: Vital Signs Temp Pulse Resp BP Pulse Ox 97.8 F 92 H 16 118/83 99 05/09/18 11:11 05/09/18 11:11 05/09/18 11:11 05/09/18 11:11 05/09/18 11:11 Progress - Progress Progress: 17:25 business services specialist sales has worked very hard to get patient admitted. Everyone has declined patient admission- spoke with CNO- we can admit obsv here "[facility] staff" will sit with patient one on one- spoke with [facility] staff and they will contact psychiatrist Dr. Monge in the morning. I explained that if Dr. Monge did an assessment and felt that patient was safe to go home tomorrow we could discharge but not until that time. Staff voiced understanding. We will admit patient observation. ED Results Lab/Radiology - Lab Results Lab Results: Lab Results 05/09/18 05/09/18 05/09/18 11:37 11:37 11:37 WBC RBC Hgb Hct MCV MCH MCHC RDW Plt Count Neut % (Auto) Lymph % (Auto) [place] % (Auto) Eos % (Auto) Baso % (Auto) Neut # (Auto) Lymph # (Auto) [place] # (Auto) Eos # (Auto) Baso # (Auto) Sodium Potassium Chloride Carbon Dioxide BUN Creatinine Estimated Creat Clear Est GFR ( Amer) Est GFR (Non-Af Amer) Glucose Calcium Total Bilirubin AST ALT Alkaline Phosphatase Total Protein Albumin Urine Color Yellow (YELLOW) Urine Appearance Clear (CLEAR) Urine pH 7.0 (5.0 - 8.0) Ur Specific [place] 1.015 (1.010-1.030) Urine Protein Negative mg/dL mg/dL (NEGATIVE) Urine Ketones Negative mg/dL mg/dL (NEGATIVE) Urine Occult Blood Negative (NEGATIVE) Urine Nitrite Negative (NEGATIVE) Urine Bilirubin Negative (NEGATIVE) Urine Urobilinogen 0.2 Eu Eu (0.2-1.0) Ur Leukocyte Esterase Trace H (NEGATIVE) Urine Glucose Negative mg/dL mg/dL (NEGATIVE) Urine HCG, Qual Negative (NEGATIVE) Opiates Screen Negative ng/mL ng/mL (<300) Oxycodone Screen Negative ng/mL ng/mL (<100) Methadone Screen Negative ng/mL ng/mL (<200) Ur Barbiturates Screen Negative ng.mL ng.mL (<200) Tricyclic Antidepress Negative ng/mL ng/mL (<300) Phencyclidine Screen Negative ng/mL ng/mL (< 25) Amphetamines Screen Negative ng/mL ng/mL (<500) U Methamphetamines Scrn Negative ng/mL ng/mL (<500) MDMA Negative ng/mL ng/mL (<500) Benzodiazepines Screen Non negative ng/mL H ng/mL (<150) Urine Cocaine Screen Negative ng/mL ng/mL (<150) U Cannabinoids Screen Negative ng/mL ng/mL (< 50) 05/09/18 05/09/18 11:20 11:20 WBC 11.50 K/ul K/ul (4.00-12.00) RBC 4.67 M/ul M/ul (3.90-5.20) Hgb 12.2 g/dL g/dL (12.0-16.0) Hct 37.1 % % (34.5-46.5) MCV 79.0 fl L fl (80.0-100.0) MCH 26.1 pg L pg (28.0-34.0) MCHC 32.8 g/dL g/dL (30.0-36.0) RDW 14.5 % H % (11.3-14.3) Plt Count 332 K/mm3 K/mm3 (130-400) Neut % (Auto) 64.6 % % (39.0-79.0) Lymph % (Auto) 29.5 % % (16.0-50.0) [place] % (Auto) 4.1 % % (0.0-11.0) Eos % (Auto) 1.1 % % (0.0-6.8) Baso % (Auto) 0.7 (0.0-1.5) Neut # (Auto) 7.5 # k/uL # k/uL (1.4-7.7) Lymph # (Auto) 3.4 # k/uL # k/uL (0.6-4.0) [place] # (Auto) 0.5 # k/uL # k/uL (0.0-0.9) Eos # (Auto) 0.1 # k/uL # k/uL (0.0-0.6) Baso # (Auto) 0.1 # k/uL # k/uL (0.0-0.5) Sodium 137 mmol/L mmol/L (136-145) Potassium 4.2 mmol/L mmol/L (3.5-5.1) Chloride 101 mmol/L mmol/L (98-107) Carbon Dioxide 28 mmol/L mmol/L (22-30) BUN 7 mg/dL mg/dL (7-17) Creatinine 0.61 mg/dL mg/dL (0.52-1.04) Estimated Creat Clear 286 Est GFR ( Amer) > 60 (60 - ) Est GFR (Non-Af Amer) > 60 (60 - ) Glucose 111 mg/dL H mg/dL (74-106) Calcium 9.6 mg/dL mg/dL (8.4-10.2) Total Bilirubin < 0.1 mg/dL L mg/dL (0.2-1.3) AST 75 U/L H U/L (15-46) ALT 10 U/L L U/L (13-69) Alkaline Phosphatase 83 U/L U/L (38-126) Total Protein 8.0 g/dL g/dL (6.3-8.2) Albumin 4.1 g/dL g/dL (3.5-5.0) Urine Color Urine Appearance Urine pH Ur Specific [place] Urine Protein Urine Ketones Urine Occult Blood Urine Nitrite Urine Bilirubin Urine Urobilinogen Ur Leukocyte Esterase Urine Glucose Urine HCG, Qual Opiates Screen Oxycodone Screen Methadone Screen Ur Barbiturates Screen Tricyclic Antidepress Phencyclidine Screen Amphetamines Screen U Methamphetamines Scrn MDMA Benzodiazepines Screen Urine Cocaine Screen U Cannabinoids Screen - Orders Orders: ED Orders Category Date Time Status BENZODIAZEPINES, QUANT, URINE Routine Lab 05/09/18 11:37 Received CBC/PLATELET/DIFF Routine Lab 05/09/18 11:20 Completed CMP Routine Lab 05/09/18 11:20 Completed UA MACRO DIP ONLY Routine Lab 05/09/18 11:37 Completed UDS [DRUG SCREEN URINE MEDICAL ONLY] Routine Lab 05/09/18 11:37 Completed URINE HCG Stat Lab 05/09/18 11:37 Completed Suicide Physical Exam - Physical Exam General Appearance: no acute distress, alert ENT: nml ENT inspection, pharynx nml, head atraumatic Eyes: PERRL Mental Status: suicidal ideation Suicide Attempts: still contemplating Orientation: nml x3 Sensory, Motor: nml motor response, nml sensory response, nml gait Neck/Back: normal inspection Respiratory: no resp distress, breath sounds normal CVS: reg rate & rhythm, heart sounds normal, equal pulses Abdomen: non-tender, nml bowel sounds Skin: warm/dry, normal color Extremities: normal range of motion, other (Hx of cutting) Discharge Clincal Impression: Suicidal ideation, Bipolar 2 disorder, Auditory hallucinations Referrals: Edd Lucero [Primary Care Provider] - 2 Days Comments: We will admit patient observation- Caregiver with the [facility] will sit with patient all night. Condition: Good Decision to Admit: [id number] Decision Time: 19:28
[2018-05-09 11:58] LABS: MEAN CORPUSCULAR HEMOGLOBIN 26.1 pg (28.0-34.0)
[2018-05-09 11:59] LABS: BASOPHILS % 0.7 (0.0-1.5); EOSINOPHILS % 1.1 % (0.0-6.8); MONOCYTES % 4.1 % (0.0-11.0); NEUTROPHILS # 7.5 # k/uL (1.4-7.7)
[2018-05-09 12:06] LABS: eGFR (Non-African) > 60
[2018-05-09 13:14] LABS: CANNABINOIDS NEGATIVE ng/mL (< 50); METHYLENEDIOXYMETHAMPHETAMINE NEGATIVE ng/mL (<500)
[2018-05-09 13:16] LABS: APPEARANCE,URINE CLEAR (CLEAR); COLOR,URINE YELLOW (YELLOW); OCCULT BLOOD,URINE NEGATIVE (NEGATIVE); UROBILINOGEN URINE 0.2 Eu (0.2-1.0)
[2018-05-09] MEDS ORDERED: LORAZEPAM 2 MG PO PRN (19:32)
[2018-05-09] MEDS ORDERED: LORazepam 1 MG TABLET PO PRN (20:07)
[2018-05-09 20:26] VITALS: BMI 43.9
[2018-05-09] MEDS ORDERED: PRAZOSIN HCL 2 MG PO SCH (21:00)
[2018-05-09] MEDS ORDERED: PRAZOSIN HCL 1 MG CAPSULE PO SCH (21:00)
[2018-05-09] MEDS ORDERED: METFORMIN HCL 1000 MG PO SCH (21:00)
[2018-05-09] MEDS ORDERED: DOXEPIN HCL 25 MG PO SCH (21:00)
[2018-05-09] MEDS ORDERED: DIVALPROEX SODIUM 1500 MG PO SCH (21:00)
[2018-05-09] MEDS ORDERED: MELATONIN 1 MG PO SCH (21:00)
[2018-05-09] MEDS ORDERED: MELATONIN 3 MG TABLET PO SCH (21:00)
[2018-05-09] MEDS ORDERED: traZODone HCL 50 MG TABLET PO SCH (21:00)
[2018-05-09] MEDS: clonazePAM 0.5 MG TABLET PO SCH (21:06)
[2018-05-09] MEDS: BENZTROPINE MESYLATE 0.5 MG TAB PO SCH (21:06)
[2018-05-09] MEDS: PATIENT OWN MED 1 EACH EACH PO SCH ×2 (22:38→22:39)
[2018-05-10] MEDS ORDERED: LEVOTHYROXINE SODIUM 100 MCG TABLET PO SCH (07:00)
--- NOTE | 2018-05-10 07:27 | Inpatient Progress Note ---
Subjective - Required Recertification Statement I anticipate X number of days because-include discharge plan: 1 - Review of Systems Events since last encounter: According to staff patient had an uneventful evening. She was calm and cooperative- Caregiver from the [facility] stayed in room with patient. This morning she is sleeping- awakes easily- no complaints or concerns- update on plan given. We will wait for conference call this morning with Dr. Harmon- [facility] collection systems administrator is arranging this. However, I will have public health social worker continue to find placement in case a bed has opened elsewhere. General: Denies: Chills, Fatigue HEENT: Denies: Head Aches Pulmonary: Denies: Dyspnea Cardiovascular: Denies: Chest Pain, Palpitations Gastrointestinal: Denies: Nausea, Vomiting, Abdominal Pain Genitourinary: Denies: Dysuria Musculoskeletal: Denies: Back Pain Neurological: Denies: Weakness, Confusion Objective - Exam Vitals and I&O: Vital Signs Temp 97.4 F L 05/10/18 05:33 Pulse 100 H 05/10/18 06:00 Resp 16 05/10/18 06:00 BP 128/73 05/10/18 05:33 Pulse Ox 97 05/10/18 05:33 Intake & Output 05/09/18 05/09/18 05/10/18 11:59 23:59 11:59 Weight 118.841 kg 119.748 kg Other: Voiding Method Toilet Toilet # Voids 3 General: Alert, Oriented to Person, Oriented to Place, Cooperative, No acute distress HEENT: PERRLA, Mouth Mucous membr. moist/Speculator, Nose Mucous membr. moist/Speculator Neck: +2 carotid pulse wo bruit Lungs: Clear to auscultation, Normal air movement, Speaks full Sentences Cardiovascular: Regular rate, Normal S1, Normal S2 Abdomen: Normal bowel sounds, Soft, No tenderness Extremities: Normal pulses, No tenderness/swelling Skin: Normal, Speculator, Warm, Dry Neurological: Normal gait, Normal speech, Strength Equal Bilat, Sensation intact Psych/Mental Status: Appropriate Affect - Results Results: Laboratory Results WBC 11.50 K/ul (4.00-12.00) 05/09/18 11:20 RBC 4.67 M/ul (3.90-5.20) 05/09/18 11:20 Hgb 12.2 g/dL (12.0-16.0) 05/09/18 11:20 Hct 37.1 % (34.5-46.5) 05/09/18 11:20 MCV 79.0 fl (80.0-100.0) L 05/09/18 11:20 MCH 26.1 pg (28.0-34.0) L 05/09/18 11:20 MCHC 32.8 g/dL (30.0-36.0) 05/09/18 11:20 RDW 14.5 % (11.3-14.3) H 05/09/18 11:20 Plt Count 332 K/mm3 (130-400) 05/09/18 11:20 Neut % (Auto) 64.6 % (39.0-79.0) 05/09/18 11:20 Lymph % (Auto) 29.5 % (16.0-50.0) 05/09/18 11:20 [place] % (Auto) 4.1 % (0.0-11.0) 05/09/18 11:20 Eos % (Auto) 1.1 % (0.0-6.8) 05/09/18 11:20 Baso % (Auto) 0.7 (0.0-1.5) 05/09/18 11:20 Neut # (Auto) 7.5 # k/uL (1.4-7.7) 05/09/18 11:20 Lymph # (Auto) 3.4 # k/uL (0.6-4.0) 05/09/18 11:20 [place] # (Auto) 0.5 # k/uL (0.0-0.9) 05/09/18 11:20 Eos # (Auto) 0.1 # k/uL (0.0-0.6) 05/09/18 11:20 Baso # (Auto) 0.1 # k/uL (0.0-0.5) 05/09/18 11:20 Sodium 137 mmol/L (136-145) 05/09/18 11:20 Potassium 4.2 mmol/L (3.5-5.1) 05/09/18 11:20 Chloride 101 mmol/L (98-107) 05/09/18 11:20 Carbon Dioxide 28 mmol/L (22-30) 05/09/18 11:20 BUN 7 mg/dL (7-17) 05/09/18 11:20 Creatinine 0.61 mg/dL (0.52-1.04) 05/09/18 11:20 Estimated Creat Clear 286 05/09/18 11:20 Est GFR ( Amer) > 60 (60-) 05/09/18 11:20 Est GFR (Non-Af Amer) > 60 (60-) 05/09/18 11:20 Glucose 111 mg/dL (74-106) H 05/09/18 11:20 Calcium 9.6 mg/dL (8.4-10.2) 05/09/18 11:20 Total Bilirubin < 0.1 mg/dL (0.2-1.3) L 05/09/18 11:20 AST 75 U/L (15-46) H 05/09/18 11:20 ALT 10 U/L (13-69) L 05/09/18 11:20 Alkaline Phosphatase 83 U/L (38-126) 05/09/18 11:20 Total Protein 8.0 g/dL (6.3-8.2) 05/09/18 11:20 Albumin 4.1 g/dL (3.5-5.0) 05/09/18 11:20 Urine Color Yellow (YELLOW) 05/09/18 11:37 Urine Appearance Clear (CLEAR) 05/09/18 11:37 Urine pH 7.0 (5.0 - 8.0) 05/09/18 11:37 Ur Specific [place] 1.015 (1.010-1.030) 05/09/18 11:37 Urine Protein Negative mg/dL (NEGATIVE) 05/09/18 11:37 Urine Ketones Negative mg/dL (NEGATIVE) 05/09/18 11:37 Urine Occult Blood Negative (NEGATIVE) 05/09/18 11:37 Urine Nitrite Negative (NEGATIVE) 05/09/18 11:37 Urine Bilirubin Negative (NEGATIVE) 05/09/18 11:37 Urine Urobilinogen 0.2 Eu (0.2-1.0) 05/09/18 11:37 Ur Leukocyte Esterase Trace (NEGATIVE) H 05/09/18 11:37 Urine Glucose Negative mg/dL (NEGATIVE) 05/09/18 11:37 Urine HCG, Qual Negative (NEGATIVE) 05/09/18 11:37 Opiates Screen Negative ng/mL (<300) 05/09/18 11:37 Oxycodone Screen Negative ng/mL (<100) 05/09/18 11:37 Methadone Screen Negative ng/mL (<200) 05/09/18 11:37 Ur Barbiturates Screen Negative ng.mL (<200) 05/09/18 11:37 Tricyclic Antidepress Negative ng/mL (<300) 05/09/18 11:37 Phencyclidine Screen Negative ng/mL (< 25) 05/09/18 11:37 Amphetamines Screen Negative ng/mL (<500) 05/09/18 11:37 U Methamphetamines Scrn Negative ng/mL (<500) 05/09/18 11:37 MDMA Negative ng/mL (<500) 05/09/18 11:37 Benzodiazepines Screen Non negative ng/mL (<150) H 05/09/18 11:37 Urine Cocaine Screen Negative ng/mL (<150) 05/09/18 11:37 U Cannabinoids Screen Negative ng/mL (< 50) 05/09/18 11:37 Assessment/Plan - Assessment/Plan (1) Suicidal ideation Status: Acute Current Visit: Yes Assessment: Patient is calm and cooperative- one on one monitoring completed by [facility] at the bedside- patient has not attempted to harm self or others. She is cooperative with her care and treatment. Plan: [facility] collection systems administrator will try to arrange emergency conference call with Dr. Harmon psychiatrist for the [facility] and see what he recommends as far as plan and future treatment. If Dr. Harmon clears patient to go home- nursing will notify me and we will discharge- if he feels that patients need inpatient care we will plan accordingly. We will go ahead and have [facility] Worker continue to look for placement.
[2018-05-10] MEDS ORDERED: GLIPIZIDE 10 MG PO SCH (09:00)
[2018-05-10] MEDS ORDERED: PALIPERIDONE 6 MG PO SCH (09:00)
[2018-05-10] MEDS ORDERED: buPROPion 150 MG TAB.ER.12H PO SCH (09:00)
[2018-05-10] MEDS ORDERED: PANTOPRAZOLE SODIUM 40 MG TABLET.DR PO SCH (09:00)
[2018-05-10] MEDS ORDERED: BUPROPION HCL 300 MG PO SCH (09:00)
[2018-05-10] MEDS: clonazePAM 0.5 MG TABLET PO SCH (09:59)
[2018-05-10] MEDS: PATIENT OWN MED 1 EACH EACH PO SCH ×2 (09:59)
[2018-05-10] MEDS: BENZTROPINE MESYLATE 0.5 MG TAB PO SCH (09:59)
[2018-05-10 13:47] VITALS: BP 119/59
--- NOTE | 2018-05-10 14:32 | Discharge Summary ---
Discharge Summary - Discharge [facility] Admission Date: 05/09/18 Discharge Date: 05/10/18 History of Present Illness: Patient is a 33-year-old female who presents to the ER with caregiver from the "[facility]". Patient states that she is hearing voices telling her to kill herself. Patient states that the voices are telling her to "cut herself". She states that she wants to cut her throat. Patient has an extensive history of psychiatric behaviors. She has a psych eval in February, hospitalized as inpatient at psychiatric facility in March, and psychiatrist has been increasing her Depakote this month and added Trazodone for sleep. She has received Invega IM on 04/21/18 and has been started on Invega 6 mg po daily. Caregiver states that patient has not really slept in 4 days- she is constantly getting up and not resting- she has been grabbing things at home and trying to harm herself. Home Medications: Ambulatory Orders Medication Instructions Recorded Benztropine Mesylate [Cogentin] 0.5 mg PO BID 11/13/17 Docusate Sodium [Colace] 200 mg PO BID 11/13/17 Glipizide [Glucotrol Xl] 10 mg PO D 11/13/17 Levothyroxine Sodium [Synthroid] 100 mcg PO D 11/13/17 Melatonin 1 mg PO HS 11/13/17 Metformin HCl [Metformin HCl ER] 1,000 mg PO BID 11/13/17 clonazePAM [Klonopin] 0.5 mg PO BID 11/13/17 Trazodone HCl 100 mg PO HS 11/19/17 Pantoprazole Sodium 40 mg PO DAILY 03/01/18 Bupropion HCl [Wellbutrin Xl] 300 mg PO DAILY 03/30/18 Divalproex Sodium [Depakote] 1,500 mg PO HS 03/30/18 Doxepin HCl [Sinequan] 25 mg PO HS 03/30/18 Loratadine [Claritin] 10 mg PO DAILY 03/30/18 Paliperidone Palmitate [Invega 1 ml IM MONTH 03/30/18 Sustenna] Prazosin HCl [Minipress] 2 mg PO HS 03/30/18 Lorazepam [Ativan] 2 mg PO Q4H PRN 05/09/18 Medroxyprogesterone Acetate 150 mg IM Q3M 05/09/18 [Depo-Provera] Multivitamin [Tab-A-Cass] 1 tab PO DAILY 05/09/18 Paliperidone [Invega] 6 mg PO DAILY 05/09/18 Consultations this Visit: Other (Consulted with [facility]- they will accept) Procedures this Visit: None Allergies/Adverse Reactions: Allergies Allergy/AdvReac Type Severity Reaction Status Date / Time zolpidem tartrate Allergy Unknown Verified 05/09/18 11:53 [From [facility]] amoxicillin Allergy Verified 05/09/18 11:53 Discharge Summary: Patient is a 33-year-old female who has shown no evidence of suicidal tendency. She stated on admission that she had not slept for 4 days- pt slept all night while in the hospital. Patient has been very cooperative during stay- she has played cards and watched TV. Many requests for food and drinks. She mentioned that she does not like where she is staying. She denies hearing any voices during admission. After numerous calls to different facilities by [employer]- [facility] has accepted pt for evaluation. Patient was transferred to [facility] via [facility]. Guardian approved transfer- Dr. Foley accepted- transfer form completed. Hospital Course: One on One supervision - Final Diagnosis (1) Suicidal ideation Problems: Stable Right or Left: Right
[2018-05-11] MEDS ORDERED: LEVOTHYROXINE SODIUM 100 MCG TABLET PO SCH (07:00)
[2018-05-11] MEDS ORDERED: PATIENT OWN MED 1 EACH EACH PO SCH (09:00)
== END 2018-05-10 15:20 ==
LOC: ED 10:43 → SOUTH 19:26
PROVIDERS: ADMIT Nurse Practitioner Family; ATTEND Nurse Practitioner Family
DX: R45.851 Suicidal ideations (principal); F31.9 Bipolar disorder, unspecified; R44.0 Auditory hallucinations; F17.210 Nicotine dependence, cigarettes, uncomplicated; Z32.02 Encounter for pregnancy test, result negative
CPT/HCPCS: 80053; 81002; 81025; 85025; 99283; A9270; G0378; G0481; 80377; 99217; 99218